=== PATIENT | female | born 1950 | race Caucasian/White ===

== ENCOUNTER 2018-12-12 14:56 | Emergency (ER) | payer MEDICARE, MEDICAID ==
[~2018-12-12] VITALS: Ht 160 cm; Wt 66.2 kg
[2018-12-12 16:37] VITALS: BP 156/65
== END 2018-12-12 18:22 | disposition home or self-care (01) ==
LOC: ER 14:56
DX: I83.892 Varicose veins of left lower extremity with other complications (principal)